=== PATIENT | male | born 1975 | race Two or more races ===

== ENCOUNTER 2017-07-16 09:26 | Emergency (ER) | payer OTHER ==
[2017-07-16] MEDS ORDERED: NS 500 ML IV ONE (10:17)
--- NOTE | 2017-07-16 10:24 | EDPHY ---
H & P Time Seen by Provider: 07/16/17 10:07 HPI/ROS: HPI Left-sided pain. 42-year-old male by private vehicle. This patient complains of left anterior lateral mid thorax pain that is worse with exertion and movement. He reports some radiation of the pain to his left shoulder. Pain described as sharp and aching. He has had a mild cough as well and the pain is worse with coughing. No history of trauma. He reports this pain came on spontaneously yesterday. He states he has had a mild intermittent nonproductive cough. ROS: Constitutional: No fever, no chills. No weakness. Eyes: No discharge. No changes in vision. ENT: No sore throat. No nasal congestion or rhinorrhea. Respiratory: As above. No shortness of breath. Cardiac: As above, no palpitations. Gastrointestinal: As above, no vomiting, no diarrhea. Genitourinary: No hematuria. No dysuria or increased frequency with urination. Musculoskeletal: No back pain. No neck pain. No myalgias or arthralgias. Skin: No rashes. Neurological: No headache. No focal weakness or altered sensation. Past medical history: Hypertension. He is on losartan. History of upper respiratory infection 2-3 weeks ago. Social history: Nonsmoker. Here by himself. No alcohol. Physical Exam: General Appearance: Alert, no distress. This patient is responding to questions appropriately and in full sentences. This patient appears well- hydrated and well-nourished. Eyes: Pupils equal and round no pallor or injection. No lid edema, erythema or injection. Respiratory: There are no retractions, lungs are clear to auscultation with good air movement bilaterally. Cardiovascular: Regular rate and rhythm. No murmur. On inspection of his left lateral chest wall and mid thorax, no rashes. No tenderness on palpation. No associated ecchymosis, erythema, edema involving the chest wall noted. Gastrointestinal: Abdomen is soft and nontender, no significant pain on palpation of the spleen, no masses, bowel sounds normal. No focal tenderness at McBurney's point. No Fontana sign. Neurological: Motor sensory function is grossly intact. Cranial nerves are normal. Gait is normal. Skin: Warm and dry, no rashes. Musculoskeletal: Neck is supple and nontender. Extremities are symmetrical. All joints range without pain or impingement. Psychiatric: No agitation. No depression. Database: EKG: Imaging: Chest x-ray PA and lateral; the cardiac mediastinal silhouette is unremarkable. No evidence of infiltrate or pneumothorax. No acute cardiopulmonary disease process noted. Interpreted by me. CT angiogram of chest and upper abdomen; no evidence of PE. The spleen is unremarkable. Patient has a localized colitis at the cold flexure and proximal aspect of the descending colon. There is associated stranding. It is circumferential. No abscess. No free air. Results were discussed with staff radiologist Dr. Shad Nino. Procedures: Emergency department course: IV placed. Vital signs reviewed. He is mildly hypertensive. Vital signs otherwise normal. Chest x-ray will be obtained initially. However if unremarkable will proceed with CT angiogram of the chest with extension through the spleen. 12:20 p.m., patient re-evaluated. He denies any significant pain at this time. Results of his CT scan emergency department workup discussed with him. The differential diagnosis was reviewed. He feels comfortable going home. Plan will be to have him follow up with Gastroenterology. I will put him on high- dose ibuprofen for several days. He feels comfortable with this plan. Return to emergency department precautions reviewed with him. All of his questions were answered. He was discharged in good condition. Differential Diagnosis: The differential diagnosis on this patient includes but is not limited to colitis, splenic enlargement, pulmonary embolism, pneumonia, musculoskeletal pain. This represents a partial list of diagnoses considered. These considerations are based on history, physical exam, past history, reassessment and diagnostic testing. Smoking Status: Never smoked Constitutional: Initial Vital Signs Temperature (C) 37.1 C 07/16/17 09:36 Heart Rate 83 07/16/17 09:36 Respiratory Rate 16 07/16/17 09:36 Blood Pressure 145/95 H 07/16/17 09:36 O2 Sat (%) 95 07/16/17 09:36 O2 Delivery Mode Room Air Allergies/Adverse Reactions: No Known Allergies Allergy (Unverified 07/16/17 09:40) Home Medications: Medication Instructions Recorded Losartan Potassium 07/16/17 Medical Decision Making - Data Points Laboratory Results: Laboratory Results 07/16/17 10:35 07/16/17 10:35 Medications Given: Discontinued Medications Sodium Chloride (Ns) 500 mls @ 1,000 mls/hr IV EDNOW ONE PRN Reason: Protocol Stop: 07/16/17 10:46 Last Admin: 07/16/17 11:05 Dose: 500 mls Departure - Departure Disposition: Home, Routine, Self-Care Clinical Impression: Colitis Condition: Good Instructions: Colitis (ED) Additional Instructions: Read and follow provided instructions. Follow-up with grain thresher as discussed, next week for re-evaluation and ongoing management. Ibuprofen dosin mg every 6 hours with meals for the next 3 days only. Return to the emergency department for worsening symptoms, worsening pain, fever , bloody stool or other serious concerns. Referrals: Angi Worthington MD [Medical Doctor] - As per Instructions
--- NOTE | 2017-07-16 10:30 | CPEKG ---
Heart Rate: 87 RR Interval: 690 P-R Interval: 160 QRSD Interval: 100 QT Interval: 372 QTC Interval: 448 P [place]: 60 QRS [place]: 21 T Wave [place]: 25 EKG Severity - BORDERLINE ECG - EKG Impression: SINUS RHYTHM EKG Impression: PROBABLE LEFT ATRIAL ABNORMALITY Electronically Signed By: Randall Frias 16-Jul-2017 15:22:51
[2017-07-16 10:45] LABS: % IMMATURE GRANULYOCYTES 0.1 % (0.0-1.1); ABSOLUTE IMMATURE GRANULOCYTES 0.01 10^3/uL (0.00-0.10); ADD DIFF? NO; ADD MORPH? NO; ADD SCAN? NO; ATYPICAL LYMPHOCYTE FLAG 0 (0-99); FRAGMENT RBC FLAG 0 (0-99); HEMATOCRIT 46.2 % (40.0-51.0); HEMOGLOBIN 16.4 g/dL (13.7-17.5); LEFT SHIFT FLG 0 (0-99); LIPEMIA HEMOLYSIS FLAG 90 (0-99); MEAN CELL HEMOGLOBIN 30.3 pg (27.9-34.1); MEAN CELL HEMOGLOBIN CONCENTR. 35.5 g/dL (32.4-36.7); MEAN CELL VOLUME 85.2 fL (81.5-99.8); MEAN PLATELET VOLUME 10.2 fL (8.7-11.7); PLATELET CLUMPS FLAG 10 (0-99); PLATELET COUNT 237 10^3/uL (150-400); RED BLOOD CELL COUNT 5.42 10^6/uL (4.40-6.38); RED CELL DISTRIBUTION WIDTH 12.9 % (11.5-15.2)
[2017-07-16 11:04] LABS: ANION GAP 15 mEq/L (8-16); CALCIUM 9.6 mg/dL (8.5-10.4); CARBON DIOXIDE 24 mEq/l (22-31); CHLORIDE 105 mEq/L (97-110); GLOMERULAR FILTRATION RATE > 60; GLUCOSE 106 mg/dL (70-100); POTASSIUM 4.6 mEq/L (3.5-5.2); SODIUM 144 mEq/L (134-144)
[2017-07-16] MEDS ORDERED: IOPAMIDOL (ISOVUE 370) 100 ML BTL IV ONE (11:15)
[2017-07-16 12:39] VITALS: BP 122/81; PULSE 78; RESP 18; TEMP 98.4; O2SAT 98
== END 2017-07-16 12:15 | disposition home or self-care (01) ==
DX: K52.9 Noninfective gastroenteritis and colitis, unspecified (principal); I10 Essential (primary) hypertension; E86.9 Volume depletion, unspecified
CPT/HCPCS: Q9967